=== PATIENT | male | born 1965 | race Caucasian/White ===

== ENCOUNTER 2016-10-11 21:24 | Emergency (ER) | payer SELFPAY ==
[~2016-10-11 21:24] MED LIST: FLEXERIL10 MG PO; IBUPROFEN; NORCO 5/325 TAB1 TAB PO
[2016-10-11] MEDS ORDERED: NO HOME MEDICATION XX (22:06)
[2016-10-11] MEDS ORDERED: NORCO 5/3251 TAB PO (22:50)
== END 2016-10-11 22:55 ==
LOC: EDMED 21:24
DX: H10.13 Acute atopic conjunctivitis, bilateral (principal); J45.909 Unspecified asthma, uncomplicated; F17.210 Nicotine dependence, cigarettes, uncomplicated; Z87.442 Personal history of urinary calculi